=== PATIENT | female | born 1965 | race Caucasian/White ===

== ENCOUNTER 2025-04-22 14:12 | Outpatient (AMB) | payer BC, SELFPAY ==
--- OUTSIDE RECORDS SUMMARY | 2024-12-01 05:30 | XMS_ITS ---
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 Washer Engineer Helper Name Role Phone Leslie Esqueda Primary Care Provider LAYLA Brown Unavailable [phone] Encounters Encounter Location Date Provider Diagnosis [facility] [address] [place] [address] 12/01/2024 LAYLA POWELL Plan Of Treatment Next Appt Details Provider Name:LAYLA Pennington, 04/27/2025 11:00:00 AM, [address], [address], [place], [address], Progress Notes * LALAYann MEANSUzielB:1965 (59 yo F)Acc No.[id number]:12/01/2024 Patient: [place] Provider: Reed POWELL PA-C :1965 A ge:59 Y S ex:Female Date:12/01/2024 Address:[address] [place] [address] [address], [place], [place] Pcp:Leslie Esqueda * Electronic signature of KAL POWELL PA-C on 04/22/2025 at 03:25 PM EST Sign off status: Pending * Provider: Reed POWELL PA-C Date: 0 12/01/2024 Generated for Inna crystal/[place]/eTransmitting on: 1 03:25 PM EST
--- NOTE | 2025-04-22 14:15 | MHC.OFFVIS ---
Vital Signs 04/22/25 14:19 Height 5 ft 3.75 in Weight 149 lb 7.574 oz BMI 25.9 BP 122/76 Blood Pressure Location Rt brachial Position Sitting Pulse 83 Pulse Source Pulse Oximeter Pulse Oximetry (%) 98 Oxygen Delivery Method Room Air Intake Visit Reasons: New Onset Hyperparathyroid w/Hypercalcemia Intake Note: New patient externally referred by PCP for Hyperparathyroid w/ Hypercalcemia. Manager Facility Required: No Accompanied by: Sister Allergies clindamycin Adverse Reaction (Unknown, Verified 04/22/25 14:25) Swelling Medication List - Last Reviewed 04/22/25 by GEORGI Sapp butalbital-acetaminophen 50-325 mg caps PO estradiol-progesterone 0.5-100 mg 1 cap PO DAILY tirzepatide (weight loss) (Zepbound) 10 mg subcut QWEEK zolmitriptan 2.5 mg PO Q2-4H PRN HPI Comments Details: 59 YO F with PMHx [] who is seen in consultation at the request of PCP for Hypercalcemia. First noted to have high calcium this yr Not Currently using Calcium supplement just took 1 pill . Not Takes IU of Vitamin D daily. Not Currently using HCTZ. Kidney stones: No Osteoporosis: No History of [place] use: No Biotin use: on for >1 yr Family history of high calcium or kidney stones: 2 aunts have hyperparathyoidism Renal imaging: No DXA: Labs:calcium=13.1 PTH =175 PFSH Medical History (Updated 04/22/25 @ 14:48 by Daniel Koo MD) Hypercalcemia Surgical History Hx of melanoma excision Hx of cholecystectomy History of surgery Hx of eye surgery Family History Mother COPD (chronic obstructive pulmonary disease) Father Skin cancer Lung cancer Brain tumor Aneurysm Social History Alcohol intake: current Alcohol intake frequency: holidays/special occasions only Patient Tobacco Use Status: Never used Tobacco Physical Exam Vital Signs: Last Vital Signs Pulse 83 04/22/25 14:19 BP 122/76 04/22/25 14:19 Pulse Ox 98 04/22/25 14:19 Oxygen Delivery Method Room Air 04/22/25 14:19 BMI result Body Mass Index 25.9 Const Other: Thyroid gland is normal size weighs about 15 g . There are no thyroid nodules palpated Assessment & Plan Assessment & Plan (1) Hypercalcemia: Code(s): E83.52 - Hypercalcemia Category: Medical Plan: This is a 59-year-old white female found to have PTH mediated hypercalcemia most likely secondary to primary hyperparathyroidism considering family history. However, the patient is on a biotin supplement which could affect calcium and PTH measurement. The patient is asymptomatic although her calcium is moderately elevated and concerning. She is also on a G LP 1/ GIP agonist which could be causing dehydration and worsening hypercalcemia We will have patient hold a biotin supplement and recheck calcium and PTH in 5 days. If both are elevated, we will then check repeat calcium, albumin, creatinine, 24 hour urine for calcium and creatinine. I will also hold the G LP 1 for now as I am concerned about exacerbating hypercalcemia with dehydration. I did warn her that if she has any signs of confusion or abdominal pain or other symptoms of hypercalcemia to go to the emergency room immediately. Assuming results are consistent with primary hyperparathyroidism, patient would benefit from parathyroid exploration. I did take the liberty of making referral to Dr. Iverson parathyroid surgeon in anticipation that this is primary hyperparathyroidism Orders: Orders Calcium 04/27/25 E83.52 - Hypercalcemia Parathyroid Hormone Intact 04/27/25 E83.52 - Hypercalcemia Albumin Level 04/27/25 E83.52 - Hypercalcemia Referrals General Surgery Referral E83.52 - Hypercalcemia Coding Level of Care Code New Pt Level 4 (67082) Diagnoses Hypercalcemia E83.52
[2025-04-22 14:19] VITALS: BP 122/76; PULSE 83; O2SAT 98; BMI 25.9
--- OUTSIDE RECORDS SUMMARY | 2025-04-22 15:26 | XMS_ITS | Patient Health Record ---
Author Organization [facility] Address [address] [place] [address] Care Team Providers Care Environmental Conservation Officer Name Role Phone Leslie Esqueda Primary Care Provider LAYLA [facility] [phone] Allergies No Known Allergies Reason For Referral No Information Medications Medication SIG (Take, Route, Frequency, Duration) Notes Start Date End Date Status Lsoxvckpmh-SZRM-[id number] 50-325-40 MG Tablet TAKE 1 TABLET BY MOUTH EVERY 12 HOURS NEEDED FOR MIGRAINE. NOT TO EXCEED 2 TABLETS DAILY. NOT TO EXCEED 4000 MG ACETAMINOPHEN PER DAY Oral; Duration: 15 Days Active Zepbound 10 MG/0.5ML Solution Auto-injector 0.5 mL Subcutaneous once weekly; Duration: 30 days Active Estradiol 0.5 MG Tablet TAKE 1 TABLET BY MOUTH EVERY DAY Oral; Duration: 90 Days Active Progesterone 100 MG Capsule TAKE 1 CAPSULE BY MOUTH EVERY DAY AT BEDTIME Oral; Duration: 90 Days Active Social History Section Notes: Etoh: Social/infrequent Tob: Denies Drugs: denies Etoh: Social/infrequent Tob: Denies Drugs: denies Etoh: Social/infrequent Tob: Denies Drugs: denies Etoh: Social/infrequent Tob: Denies Drugs: denies Problems Problem Type SNOMED Code ICD Code Onset Dates Problem Status W/U Status Risk Notes Problem Prediabetes (979416976) Prediabetes (R73.03) Active confirmed Problem Pure hypercholesterolemia (771418689) Pure hypercholesterolemia (E78.00) Active confirmed Problem Episodic migraine (902631359377771) Episodic migraine (G43.909) Active confirmed Problem History of obesity (193356294) History of obesity (Z86.39) Active confirmed Vital Signs Heart Rate 66 /min 03/16/2025 Oximetry 99 % 03/16/2025 Blood pressure diastolic 78 mm Hg 03/16/2025 Height 63 in 03/16/2025 Blood pressure systolic 120 mm Hg 03/16/2025 Weight 154.4 lbs 03/16/2025 BMI 27.35 kg/m2 03/16/2025 Encounters Encounter Location Date Provider Diagnosis [facility] [address] 10/27/2024 LAYLA POWELL Obesity (BMI 30.0-34 .9) E66.811 ; BMI 32.0-32.9,adult Z68.32 ; Prediabetes R73.03 ; Pure hypercholesterolemia E78.00 ; Nutritional counseling Z71.3 and Blood pressure check Z01.30 [facility] [address] 12/08/2024 LAYLA POWELL BMI 30.0-30.9,adult Z68.30 ; Obesity (BMI 30.0-34.9) E66.811 ; Prediabetes R73.03 ; Pure hypercholesterolemia E78.00 ; Nutritional counseling Z71.3 and Blood pressure check Z01.30 [facility] [address] 12/31/2024 LAYLA POWELL History of obesity Z 86.39 ; BMI 29.0-29.9,adult Z68.29 ; Prediabetes R73.03 ; Pure hypercholesterolemia E78.00 ; Nutritional counseling Z71.3 and Blood pressure check Z01.30 [facility] [address] 03/16/2025 LAYLA POWELL History of obesity Z 86.39 ; BMI 27.0-27.9,adult Z68.27 ; Prediabetes R73.03 ; Pure hypercholesterolemia E78.00 ; Nutritional counseling Z71.3 and Blood pressure check Z01.30 [facility] [address] [address] 10/27/2024 LAYLA POWELL [facility] [address] [place] [address] 10/27/2024 LAYLA ANTONIOHAM [facility] [address] 10/28/2024 LAYLA POWELL Obesity (BMI 30.0-34 .9) E66.[address] [facility] [address] [place] [address] 11/27/2024 LAYLA ANTONIOHAM [facility] [address] [place] [address] [place] [phone] 01/21/2025 LAYLA ANTONIOHAM [facility] [address] [place] [address] 02/17/2025 LAYLA ANTONIOHAM [facility] [address] [place] [address] 03/23/2025 LAYLA SHERRY [facility] [address] [place] [address] 04/06/2025 LAYLA ANTONIOHAM [facility] [address] [place] [address] 04/13/2025 LAYLA ANTONIOHAM [facility] [address] [place] [address] [place] [phone] 04/17/2025 LAYLA ANTONIOHAM [facility] [address] [place] [address] [place] [phone] 04/18/2025 LAYLA ANTONIOHAM [facility] [address] [address] 04/20/2025 LAYLA ANTONIOHAM Assessments Encounter Date Diagnosis (ICD Code) Assessment Notes Treatment Notes Treatment Clinical Notes Section Notes 10/27/2024 BMI 32.0-32.9,adult (ICD-10 - Z68.32) Raven is a 59-year-old female with a PMHx of migraines, HLD, prediabetes that presents for weight management consult. Patient was reassured and welcomed to the practice. Discussed [facility] holistic and medical approach to weight loss with emphasis on lifestyle modification. Patient is educated that a healthy lifestyle aids in combating obesity as well as reducing the risk of developing obesity-related medical complications including but not limited to diabetes and cardiovascular disease. Detailed education provided about taking steps to initiate sustainable lifestyle changes including incorporating regular physical activity, making healthy diet choices, and prioritizing mental health. Information provided about literature including The Food Rules by Karson Hernandez and Eat Fat Get Lean by Dr Kenney Santos. Handouts including lifestyle checklist, protein content of food, low calorie snacks, and cholesterol information sheet provided. Diagnostic testing/ SECA scale offered. Discussed the importance of regular SECA scale measurements to ensure healthy weight loss. 10/27/2024: Weight: 183.6, BMI: 32.5. Reviewed SECA/goals for implementing sustainable lifestyle changes. Patient is encouraged to increase physical activity, goal 8-10k steps/day. Also discussed the importance of strength training with proper safety/body mechanics for maintenance of muscle mass/bone health. Patient encouraged to drink 60-80oz water/day. Reviewed nutrition, recommending food diary x 1 week to ensure adequate caloric/protein intake. Goal of 80-100g protein/day. Reviewed risks, benefits, and side effects of weight management medications including phentermine, Topamax, Contrave, metformin, and GLP-1 agonist. Patient interested in GLP-1/GIP agonist Zepbound. Denies personal/family history of medullary thyroid cancer/M EN syndrome. Rx for Zepbound 2.5 mg SC weekly sent to pharmacy. Reviewed proper use, administration, and expectations for PA process/insurance coverage. After consultation and careful review of medical history, this patient would benefit from Zepbound based off of the following criteria met: Patient is over the age of 18 with a BMI of 32.5. Additional comorbidities include prediabetes, HLD. Patient has trialed other methods of weight loss including improving diet and exercise without success. This medication is prescribed by or in consultation with a board-certified obesity and weight management physician (Dr. True Coombs or Dr. Isra Coombs). All questions answered to the patient's satisfaction. Patient demonstrates understanding of diagnosis and treatments discussed. Follow-up at next scheduled appointment, sooner should any questions/concerns arise. Case discussed with collaborating physician Fabian Coombs who has reviewed the assessment/plan. Chart, medications, labs, and vital signs reviewed. Dictation completed with the use of Glimpse voice recognition software, prone to medical misidentifications and grammatical errors. All errors are unintentional. Although the practitioner does try to identify and correct errors, some may be present. Please do not hesitate to contact the practitioner for clarification. Total time was 60 minutes spent with greater than 50% on coordination of care and patient education. 10/27/2024 Obesity (BMI 30.0-34.9) (ICD-10 - E66.811) Raven is a 59-year-old female with a PMHx of migraines, HLD, prediabetes that presents for weight management consult. Patient was reassured and welcomed to the practice. Discussed [facility] holistic and medical approach to weight loss with emphasis on lifestyle modification. Patient is educated that a healthy lifestyle aids in combating obesity as well as reducing the risk of developing obesity-related medical complications including but not limited to diabetes and cardiovascular disease. Detailed education provided about taking steps to initiate sustainable lifestyle changes including incorporating regular physical activity, making healthy diet choices, and prioritizing mental health. Information provided about literature including The Food Rules by Karson Hernandez and Eat Fat Get Lean by Dr Kenney Santos. Handouts including lifestyle checklist, protein content of food, low calorie snacks, and cholesterol information sheet provided. Diagnostic testing/ SECA scale offered. Discussed the importance of regular SECA scale measurements to ensure healthy weight loss. 10/27/2024: Weight: 183.6, BMI: 32.5. Reviewed SECA/goals for implementing sustainable lifestyle changes. Patient is encouraged to increase physical activity, goal 8-10k steps/day. Also discussed the importance of strength training with proper safety/body mechanics for maintenance of muscle mass/bone health. Patient encouraged to drink 60-80oz water/day. Reviewed nutrition, recommending food diary x 1 week to ensure adequate caloric/protein intake. Goal of 80-100g protein/day. Reviewed risks, benefits, and side effects of weight management medications including phentermine, Topamax, Contrave, metformin, and GLP-1 agonist. Patient interested in GLP-1/GIP agonist Zepbound. Denies personal/family history of medullary thyroid cancer/M EN syndrome. Rx for Zepbound 2.5 mg SC weekly sent to pharmacy. Reviewed proper use, administration, and expectations for PA process/insurance coverage. After consultation and careful review of medical history, this patient would benefit from Zepbound based off of the following criteria met: Patient is over the age of 16 with a BMI of 32.5. Additional comorbidities include prediabetes, HLD. Patient has trialed other methods of weight loss including improving diet and exercise without success. This medication is prescribed by or in consultation with a board-certified obesity and weight management physician (Dr. True Coombs or Dr. Isra Coombs). All questions answered to the patient's satisfaction. Patient demonstrates understanding of diagnosis and treatments discussed. Follow-up at next scheduled appointment, sooner should any questions/concerns arise. Case discussed with collaborating physician Fabian Coombs who has reviewed the assessment/plan. Chart, medications, labs, and vital signs reviewed. Dictation completed with the use of Glimpse voice recognition software, prone to medical misidentifications and grammatical errors. All errors are unintentional. Although the practitioner does try to identify and correct errors, some may be present. Please do not hesitate to contact the practitioner for clarification. Total time was 60 minutes spent with greater than 50% on coordination of care and patient education. 10/28/2024 Obesity (BMI 30.0-34.9) (ICD-10 - E66.811) 12/08/2024 BMI 30.0-30.9,adult (ICD-10 - Z68.30) Raven is a 59-year-old female with a PMHx of migraines, HLD, prediabetes that presents for weight management follow up. Reviewed [facility] holistic and medical approach to weight loss with emphasis on lifestyle modification 12/08/2024: Weight: 173.8, BMI: 30.6 (-10lbs) MAURICIOA reviewed, reveals 10 pounds of fat loss with mild improvement in muscle mass. Patient congratulated on progress. She is encouraged to continue making health-conscious diet choices, prioritizing protein intake, hydrating adequately, and exercising regularly. Plan to continue Zepbound 2.5 mg SC weekly and follow-up in 1 month. 10/27/2024: Weight: 183.6, BMI: 32.5. All questions answered to the patient's satisfaction. Patient demonstrates understanding of diagnosis and treatments discussed. Follow-up at next scheduled appointment, sooner should any questions/concerns arise. Case discussed with collaborating physician Fabian Coombs who has reviewed the assessment/plan. Chart, medications, labs, and vital signs reviewed. Dictation completed with the use of Glimpse voice recognition software, prone to medical misidentifications and grammatical errors. All errors are unintentional. Although the practitioner does try to identify and correct errors, some may be present. Please do not hesitate to contact the practitioner for clarification. Total time was 30 minutes spent with greater than 50% on coordination of care and patient education. 12/31/2024 BMI 29.0-29.9,adult (ICD-10 - Z68.29) Raven is a 59-year-old female with a PMHx of migraines, HLD, prediabetes that presents for weight management follow up. Reviewed [facility] holistic and medical approach to weight loss with emphasis on lifestyle modification 12/31/2024: Weight: 167, BMI: 29.5 (-6lbs) SECA reviewed, reveals 5lbs of fat loss and stable muscle mass. Patient congratulated on continued progress. She is encouraged to continue making health-conscious diet choices and prioritizing protein intake. Reviewed the importance of adequate caloric intake in setting of GLP-1 induced appetite suppression. She is encouraged to continue exercising regularly and hydrating adequately. Plan to increase dose of Zepbound to 5 mg SC weekly and follow-up in 4 to 6 weeks. 12/08/2024: Weight: 173.8, BMI: 30.6 (-10lbs) 10/27/2024: Weight: 183.6, BMI: 32.5. All questions answered to the patient's satisfaction. Patient demonstrates understanding of diagnosis and treatments discussed. Follow-up at next scheduled appointment, sooner should any questions/concerns arise. Case discussed with collaborating physician Fabian Coombs who has reviewed the assessment/plan. Chart, medications, labs, and vital signs reviewed. Dictation completed with the use of Glimpse voice recognition software, prone to medical misidentifications and grammatical errors. All errors are unintentional. Although the practitioner does try to identify and correct errors, some may be present. Please do not hesitate to contact the practitioner for clarification. Total time was 30 minutes spent with greater than 50% on coordination of care and patient education. 12/31/2024 History of obesity (ICD-10 - Z86.39) Raven is a 59-year-old female with a PMHx of migraines, HLD, prediabetes that presents for weight management follow up. Reviewed [facility] holistic and medical approach to weight loss with emphasis on lifestyle modification 12/31/2024: Weight: 167, BMI: 29.5 (-6lbs) SECA reviewed, reveals 5lbs of fat loss and stable muscle mass. Patient congratulated on continued progress. She is encouraged to continue making health-conscious diet choices and prioritizing protein intake. Reviewed the importance of adequate caloric intake in setting of GLP-1 induced appetite suppression. She is encouraged to continue exercising regularly and hydrating adequately. Plan to increase dose of Zepbound to 5 mg SC weekly and follow-up in 4 to 6 weeks. 12/08/2024: Weight: 173.8, BMI: 30.6 (-10lbs) 10/27/2024: Weight: 183.6, BMI: 32.5. All questions answered to the patient's satisfaction. Patient demonstrates understanding of diagnosis and treatments discussed. Follow-up at next scheduled appointment, sooner should any questions/concerns arise. Case discussed with collaborating physician Fabian Coombs who has reviewed the assessment/plan. Chart, medications, labs, and vital signs reviewed. Dictation completed with the use of Glimpse voice recognition software, prone to medical misidentifications and grammatical errors. All errors are unintentional. Although the practitioner does try to identify and correct errors, some may be present. Please do not hesitate to contact the practitioner for clarification. Total time was 30 minutes spent with greater than 50% on coordination of care and patient education. 03/16/2025 BMI 27.0-27.9,adult (ICD-10 - Z68.27) Raven is a 59-year-old female with a PMHx of migraines, HLD, prediabetes that presents for weight management follow up. Reviewed [facility] holistic and medical approach to weight loss with emphasis on lifestyle modification 03/12/2025: Weight: 154.4, BMI: 27.3 (-13lbs) SECA reviewed, reveals nearly 10 pounds of fat loss and 5 pounds of muscle mass loss. Patient encouraged to reestablish routine. Discussed importance of protein dense/nutrient rich foods, adequate hydration, regular physical activity. She will continue Zepbound 7.5 mg SC weekly consider increasing dose to 10 mg pending weight loss over the next 2 weeks. 12/31/2024: Weight: 167, BMI: 29.5 (-6lbs) 12/08/2024: Weight: 173.8, BMI: 30.6 (-10lbs) 10/27/2024: Weight: 183.6, BMI: 32.5. All questions answered to the patient's satisfaction. Patient demonstrates understanding of diagnosis and treatments discussed. Follow-up at next scheduled appointment, sooner should any questions/concerns arise. Case discussed with collaborating physician Fabian Coombs who has reviewed the assessment/plan. Chart, medications, labs, and vital signs reviewed. Dictation completed with the use of Glimpse voice recognition software, prone to medical misidentifications and grammatical errors. All errors are unintentional. Although the practitioner does try to identify and correct errors, some may be present. Please do not hesitate to contact the practitioner for clarification. Total time was 30 minutes spent with greater than 50% on coordination of care and patient education. 03/16/2025 History of obesity (ICD-10 - Z86.39) Raven is a 59-year-old female with a PMHx of migraines, HLD, prediabetes that presents for weight management follow up. Reviewed [facility] holistic and medical approach to weight loss with emphasis on lifestyle modification 03/12/2025: Weight: 154.4, BMI: 27.3 (-13lbs) SECA reviewed, reveals nearly 10 pounds of fat loss and 5 pounds of muscle mass loss. Patient encouraged to reestablish routine. Discussed importance of protein dense/nutrient rich foods, adequate hydration, regular physical activity. She will continue Zepbound 7.5 mg SC weekly consider increasing dose to 10 mg pending weight loss over the next 2 weeks. 12/31/2024: Weight: 167, BMI: 29.5 (-6lbs) 12/08/2024: Weight: 173.8, BMI: 30.6 (-10lbs) 10/27/2024: Weight: 183.6, BMI: 32.5. All questions answered to the patient's satisfaction. Patient demonstrates understanding of diagnosis and treatments discussed. Follow-up at next scheduled appointment, sooner should any questions/concerns arise. Case discussed with collaborating physician Fabian Coombs who has reviewed the assessment/plan. Chart, medications, labs, and vital signs reviewed. Dictation completed with the use of Glimpse voice recognition software, prone to medical misidentifications and grammatical errors. All errors are unintentional. Although the practitioner does try to identify and correct errors, some may be present. Please do not hesitate to contact the practitioner for clarification. Total time was 30 minutes spent with greater than 50% on coordination of care and patient education. 03/16/2025 Prediabetes (ICD-10 - R73.03) Raven is a 59-year-old female with a PMHx of migraines, HLD, prediabetes that presents for weight management follow up. Reviewed [facility] holistic and medical approach to weight loss with emphasis on lifestyle modification 03/12/2025: Weight: 154.4, BMI: 27.3 (-13lbs) SECA reviewed, reveals nearly 10 pounds of fat loss and 5 pounds of muscle mass loss. Patient encouraged to reestablish routine. Discussed importance of protein dense/nutrient rich foods, adequate hydration, regular physical activity. She will continue Zepbound 7.5 mg SC weekly consider increasing dose to 10 mg pending weight loss over the next 2 weeks. 12/31/2024: Weight: 167, BMI: 29.5 (-6lbs) 12/08/2024: Weight: 173.8, BMI: 30.6 (-10lbs) 10/27/2024: Weight: 183.6, BMI: 32.5. All questions answered to the patient's satisfaction. Patient demonstrates understanding of diagnosis and treatments discussed. Follow-up at next scheduled appointment, sooner should any questions/concerns arise. Case discussed with collaborating physician Fabian Coombs who has reviewed the assessment/plan. Chart, medications, labs, and vital signs reviewed. Dictation completed with the use of Glimpse voice recognition software, prone to medical misidentifications and grammatical errors. All errors are unintentional. Although the practitioner does try to identify and correct errors, some may be present. Please do not hesitate to contact the practitioner for clarification. Total time was 30 minutes spent with greater than 50% on coordination of care and patient education. 12/31/2024 Prediabetes (ICD-10 - R73.03) Raven is a 59-year-old female with a PMHx of migraines, HLD, prediabetes that presents for weight management follow up. Reviewed [facility] holistic and medical approach to weight loss with emphasis on lifestyle modification 12/31/2024: Weight: 167, BMI: 29.5 (-6lbs) SECA reviewed, reveals 5lbs of fat loss and stable muscle mass. Patient congratulated on continued progress. She is encouraged to continue making health-conscious diet choices and prioritizing protein intake. Reviewed the importance of adequate caloric intake in setting of GLP-1 induced appetite suppression. She is encouraged to continue exercising regularly and hydrating adequately. Plan to increase dose of Zepbound to 5 mg SC weekly and follow-up in 4 to 6 weeks. 12/08/2024: Weight: 173.8, BMI: 30.6 (-10lbs) 10/27/2024: Weight: 183.6, BMI: 32.5. All questions answered to the patient's satisfaction. Patient demonstrates understanding of diagnosis and treatments discussed. Follow-up at next scheduled appointment, sooner should any questions/concerns arise. Case discussed with collaborating physician Fabian Coombs who has reviewed the assessment/plan. Chart, medications, labs, and vital signs reviewed. Dictation completed with the use of Glimpse voice recognition software, prone to medical misidentifications and grammatical errors. All errors are unintentional. Although the practitioner does try to identify and correct errors, some may be present. Please do not hesitate to contact the practitioner for clarification. Total time was 30 minutes spent with greater than 50% on coordination of care and patient education. 12/08/2024 Obesity (BMI 30.0-34.9) (ICD-10 - E66.811) Raven is a 59-year-old female with a PMHx of migraines, HLD, prediabetes that presents for weight management follow up. Reviewed [facility] holistic and medical approach to weight loss with emphasis on lifestyle modification 12/08/2024: Weight: 173.8, BMI: 30.6 (-10lbs) SECA reviewed, reveals 10 pounds of fat loss with mild improvement in muscle mass. Patient congratulated on progress. She is encouraged to continue making health-conscious diet choices, prioritizing protein intake, hydrating adequately, and exercising regularly. Plan to continue Zepbound 2.5 mg SC weekly and follow-up in 1 month. 10/27/2024: Weight: 183.6, BMI: 32.5. All questions answered to the patient's satisfaction. Patient demonstrates understanding of diagnosis and treatments discussed. Follow-up at next scheduled appointment, sooner should any questions/concerns arise. Case discussed with collaborating physician Fabian Coombs who has reviewed the assessment/plan. Chart, medications, labs, and vital signs reviewed. Dictation completed with the use of Dragon voice recognition software, prone to medical misidentifications and grammatical errors. All errors are unintentional. Although the practitioner does try to identify and correct errors, some may be present. Please do not hesitate to contact the practitioner for clarification. Total time was 30 minutes spent with greater than 50% on coordination of care and patient education. 12/08/2024 Prediabetes (ICD-10 - R73.03) Raven is a 59-year-old female with a PMHx of migraines, HLD, prediabetes that presents for weight management follow up. Reviewed [facility] holistic and medical approach to weight loss with emphasis on lifestyle modification 12/08/2024: Weight: 173.8, BMI: 30.6 (-10lbs) SECA reviewed, reveals 10 pounds of fat loss with mild improvement in muscle mass. Patient congratulated on progress. She is encouraged to continue making health-conscious diet choices, prioritizing protein intake, hydrating adequately, and exercising regularly. Plan to continue Zepbound 2.5 mg SC weekly and follow-up in 1 month. 10/27/2024: Weight: 183.6, BMI: 32.5. All questions answered to the patient's satisfaction. Patient demonstrates understanding of diagnosis and treatments discussed. Follow-up at next scheduled appointment, sooner should any questions/concerns arise. Case discussed with collaborating physician Fabian Coombs who has reviewed the assessment/plan. Chart, medications, labs, and vital signs reviewed. Dictation completed with the use of Glimpse voice recognition software, prone to medical misidentifications and grammatical errors. All errors are unintentional. Although the practitioner does try to identify and correct errors, some may be present. Please do not hesitate to contact the practitioner for clarification. Total time was 30 minutes spent with greater than 50% on coordination of care and patient education. 10/27/2024 Prediabetes (ICD-10 - R73.03) Raven is a 59-year-old female with a PMHx of migraines, HLD, prediabetes that presents for weight management consult. Patient was reassured and welcomed to the practice. Discussed [facility] holistic and medical approach to weight loss with emphasis on lifestyle modification. Patient is educated that a healthy lifestyle aids in combating obesity as well as reducing the risk of developing obesity-related medical complications including but not limited to diabetes and cardiovascular disease. Detailed education provided about taking steps to initiate sustainable lifestyle changes including incorporating regular physical activity, making healthy diet choices, and prioritizing mental health. Information provided about literature including The Food Rules by Karson Hernandez and Eat Fat Get Lean by Dr Kenney Santos. Handouts including lifestyle checklist, protein content of food, low calorie snacks, and cholesterol information sheet provided. Diagnostic testing/ SECA scale offered. Discussed the importance of regular SECA scale measurements to ensure healthy weight loss. 10/27/2024: Weight: 183.6, BMI: 32.5. Reviewed SECA/goals for implementing sustainable lifestyle changes. Patient is encouraged to increase physical activity, goal 8-10k steps/day. Also discussed the importance of strength training with proper safety/body mechanics for maintenance of muscle mass/bone health. Patient encouraged to drink 60-80oz water/day. Reviewed nutrition, recommending food diary x 1 week to ensure adequate caloric/protein intake. Goal of 80-100g protein/day. Reviewed risks, benefits, and side effects of weight management medications including phentermine, Topamax, Contrave, metformin, and GLP-1 agonist. Patient interested in GLP-1/GIP agonist Zepbound. Denies personal/family history of medullary thyroid cancer/M EN syndrome. Rx for Zepbound 2.5 mg SC weekly sent to pharmacy. Reviewed proper use, administration, and expectations for PA process/insurance coverage. After consultation and careful review of medical history, this patient would benefit from Zepbound based off of the following criteria met: Patient is over the age of 16 with a BMI of 32.5. Additional comorbidities include prediabetes, HLD. Patient has trialed other methods of weight loss including improving diet and exercise without success. This medication is prescribed by or in consultation with a board-certified obesity and weight management physician (Dr. True Coombs or Dr. Isra Coombs). All questions answered to the patient's satisfaction. Patient demonstrates understanding of diagnosis and treatments discussed. Follow-up at next scheduled appointment, sooner should any questions/concerns arise. Case discussed with collaborating physician Fabian Coombs who has reviewed the assessment/plan. Chart, medications, labs, and vital signs reviewed. Dictation completed with the use of Glimpse voice recognition software, prone to medical misidentifications and grammatical errors. All errors are unintentional. Although the practitioner does try to identify and correct errors, some may be present. Please do not hesitate to contact the practitioner for clarification. Total time was 60 minutes spent with greater than 50% on coordination of care and patient education. 10/27/2024 Pure hypercholesterolemia (ICD-10 - E78.00) Raven is a 59-year-old female with a PMHx of migraines, HLD, prediabetes that presents for weight management consult. Patient was reassured and welcomed to the practice. Discussed [facility] holistic and medical approach to weight loss with emphasis on lifestyle modification. Patient is educated that a healthy lifestyle aids in combating obesity as well as reducing the risk of developing obesity-related medical complications including but not limited to diabetes and cardiovascular disease. Detailed education provided about taking steps to initiate sustainable lifestyle changes including incorporating regular physical activity, making healthy diet choices, and prioritizing mental health. Information provided about literature including The Food Rules by Karson Hernandez and Eat Fat Get Lean by Dr Kenney Santos. Handouts including lifestyle checklist, protein content of food, low calorie snacks, and cholesterol information sheet provided. Diagnostic testing/ SECA scale offered. Discussed the importance of regular SECA scale measurements to ensure healthy weight loss. 10/27/2024: Weight: 183.6, BMI: 32.5. Reviewed SECA/goals for implementing sustainable lifestyle changes. Patient is encouraged to increase physical activity, goal 8-10k steps/day. Also discussed the importance of strength training with proper safety/body mechanics for maintenance of muscle mass/bone health. Patient encouraged to drink 60-80oz water/day. Reviewed nutrition, recommending food diary x 1 week to ensure adequate caloric/protein intake. Goal of 80-100g protein/day. Reviewed risks, benefits, and side effects of weight management medications including phentermine, Topamax, Contrave, metformin, and GLP-1 agonist. Patient interested in GLP-1/GIP agonist Zepbound. Denies personal/family history of medullary thyroid cancer/M EN syndrome. Rx for Zepbound 2.5 mg SC weekly sent to pharmacy. Reviewed proper use, administration, and expectations for PA process/insurance coverage. After consultation and careful review of medical history, this patient would benefit from Zepbound based off of the following criteria met: Patient is over the age of 16 with a BMI of 32.5. Additional comorbidities include prediabetes, HLD. Patient has trialed other methods of weight loss including improving diet and exercise without success. This medication is prescribed by or in consultation with a board-certified obesity and weight management physician (Dr. True Coombs or Dr. Isra Coombs). All questions answered to the patient's satisfaction. Patient demonstrates understanding of diagnosis and treatments discussed. Follow-up at next scheduled appointment, sooner should any questions/concerns arise. Case discussed with collaborating physician Fabian Coombs who has reviewed the assessment/plan. Chart, medications, labs, and vital signs reviewed. Dictation completed with the use of Glimpse voice recognition software, prone to medical misidentifications and grammatical errors. All errors are unintentional. Although the practitioner does try to identify and correct errors, some may be present. Please do not hesitate to contact the practitioner for clarification. Total time was 60 minutes spent with greater than 50% on coordination of care and patient education. 12/08/2024 Pure hypercholesterolemia (ICD-10 - E78.00) Raven is a 59-year-old female with a PMHx of migraines, HLD, prediabetes that presents for weight management follow up. Reviewed [facility] holistic and medical approach to weight loss with emphasis on lifestyle modification 12/08/2024: Weight: 173.8, BMI: 30.6 (-10lbs) SECA reviewed, reveals 10 pounds of fat loss with mild improvement in muscle mass. Patient congratulated on progress. She is encouraged to continue making health-conscious diet choices, prioritizing protein intake, hydrating adequately, and exercising regularly. Plan to continue Zepbound 2.5 mg SC weekly and follow-up in 1 month. 10/27/2024: Weight: 183.6, BMI: 32.5. All questions answered to the patient's satisfaction. Patient demonstrates understanding of diagnosis and treatments discussed. Follow-up at next scheduled appointment, sooner should any questions/concerns arise. Case discussed with collaborating physician Fabian Coombs who has reviewed the assessment/plan. Chart, medications, labs, and vital signs reviewed. Dictation completed with the use of Glimpse voice recognition software, prone to medical misidentifications and grammatical errors. All errors are unintentional. Although the practitioner does try to identify and correct errors, some may be present. Please do not hesitate to contact the practitioner for clarification. Total time was 30 minutes spent with greater than 50% on coordination of care and patient education. 12/31/2024 Pure hypercholesterolemia (ICD-10 - E78.00) Raven is a 59-year-old female with a PMHx of migraines, HLD, prediabetes that presents for weight management follow up. Reviewed [facility] holistic and medical approach to weight loss with emphasis on lifestyle modification 12/31/2024: Weight: 167, BMI: 29.5 (-6lbs) SECA reviewed, reveals 5lbs of fat loss and stable muscle mass. Patient congratulated on continued progress. She is encouraged to continue making health-conscious diet choices and prioritizing protein intake. Reviewed the importance of adequate caloric intake in setting of GLP-1 induced appetite suppression. She is encouraged to continue exercising regularly and hydrating adequately. Plan to increase dose of Zepbound to 5 mg SC weekly and follow-up in 4 to 6 weeks. 12/08/2024: Weight: 173.8, BMI: 30.6 (-10lbs) 10/27/2024: Weight: 183.6, BMI: 32.5. All questions answered to the patient's satisfaction. Patient demonstrates understanding of diagnosis and treatments discussed. Follow-up at next scheduled appointment, sooner should any questions/concerns arise. Case discussed with collaborating physician Fabian Coombs who has reviewed the assessment/plan. Chart, medications, labs, and vital signs reviewed. Dictation completed with the use of Glimpse voice recognition software, prone to medical misidentifications and grammatical errors. All errors are unintentional. Although the practitioner does try to identify and correct errors, some may be present. Please do not hesitate to contact the practitioner for clarification. Total time was 30 minutes spent with greater than 50% on coordination of care and patient education. 03/16/2025 Pure hypercholesterolemia (ICD-10 - E78.00) Raven is a 59-year-old female with a PMHx of migraines, HLD, prediabetes that presents for weight management follow up. Reviewed [facility] holistic and medical approach to weight loss with emphasis on lifestyle modification 03/12/2025: Weight: 154.4, BMI: 27.3 (-13lbs) SECA reviewed, reveals nearly 10 pounds of fat loss and 5 pounds of muscle mass loss. Patient encouraged to reestablish routine. Discussed importance of protein dense/nutrient rich foods, adequate hydration, regular physical activity. She will continue Zepbound 7.5 mg SC weekly consider increasing dose to 10 mg pending weight loss over the next 2 weeks. 12/31/2024: Weight: 167, BMI: 29.5 (-6lbs) 12/08/2024: Weight: 173.8, BMI: 30.6 (-10lbs) 10/27/2024: Weight: 183.6, BMI: 32.5. All questions answered to the patient's satisfaction. Patient demonstrates understanding of diagnosis and treatments discussed. Follow-up at next scheduled appointment, sooner should any questions/concerns arise. Case discussed with collaborating physician Fabian Coombs who has reviewed the assessment/plan. Chart, medications, labs, and vital signs reviewed. Dictation completed with the use of Glimpse voice recognition software, prone to medical misidentifications and grammatical errors. All errors are unintentional. Although the practitioner does try to identify and correct errors, some may be present. Please do not hesitate to contact the practitioner for clarification. Total time was 30 minutes spent with greater than 50% on coordination of care and patient education. 03/16/2025 Nutritional counseli bonilla (ICD-10 - Z71.3) Raven is a 59-year-old female with a PMHx of migraines, HLD, prediabetes that presents for weight management follow up. Reviewed [facility] holistic and medical approach to weight loss with emphasis on lifestyle modification 03/12/2025: Weight: 154.4, BMI: 27.3 (-13lbs) SECA reviewed, reveals nearly 10 pounds of fat loss and 5 pounds of muscle mass loss. Patient encouraged to reestablish routine. Discussed importance of protein dense/nutrient rich foods, adequate hydration, regular physical activity. She will continue Zepbound 7.5 mg SC weekly consider increasing dose to 10 mg pending weight loss over the next 2 weeks. 12/31/2024: Weight: 167, BMI: 29.5 (-6lbs) 12/08/2024: Weight: 173.8, BMI: 30.6 (-10lbs) 10/27/2024: Weight: 183.6, BMI: 32.5. All questions answered to the patient's satisfaction. Patient demonstrates understanding of diagnosis and treatments discussed. Follow-up at next scheduled appointment, sooner should any questions/concerns arise. Case discussed with collaborating physician Fabian Coombs who has reviewed the assessment/plan. Chart, medications, labs, and vital signs reviewed. Dictation completed with the use of Glimpse voice recognition software, prone to medical misidentifications and grammatical errors. All errors are unintentional. Although the practitioner does try to identify and correct errors, some may be present. Please do not hesitate to contact the practitioner for clarification. Total time was 30 minutes spent with greater than 50% on coordination of care and patient education. 12/31/2024 Nutritional counseli bonilla (ICD-10 - Z71.3) Raven is a 59-year-old female with a PMHx of migraines, HLD, prediabetes that presents for weight management follow up. Reviewed [facility] holistic and medical approach to weight loss with emphasis on lifestyle modification 12/31/2024: Weight: 167, BMI: 29.5 (-6lbs) SECA reviewed, reveals 5lbs of fat loss and stable muscle mass. Patient congratulated on continued progress. She is encouraged to continue making health-conscious diet choices and prioritizing protein intake. Reviewed the importance of adequate caloric intake in setting of GLP-1 induced appetite suppression. She is encouraged to continue exercising regularly and hydrating adequately. Plan to increase dose of Zepbound to 5 mg SC weekly and follow-up in 4 to 6 weeks. 12/08/2024: Weight: 173.8, BMI: 30.6 (-10lbs) 10/27/2024: Weight: 183.6, BMI: 32.5. All questions answered to the patient's satisfaction. Patient demonstrates understanding of diagnosis and treatments discussed. Follow-up at next scheduled appointment, sooner should any questions/concerns arise. Case discussed with collaborating physician Fabian Coombs who has reviewed the assessment/plan. Chart, medications, labs, and vital signs reviewed. Dictation completed with the use of Glimpse voice recognition software, prone to medical misidentifications and grammatical errors. All errors are unintentional. Although the practitioner does try to identify and correct errors, some may be present. Please do not hesitate to contact the practitioner for clarification. Total time was 30 minutes spent with greater than 50% on coordination of care and patient education. 12/08/2024 Nutritional counseldick crystal (ICD-10 - Z71.3) Raven is a 59-year-old female with a PMHx of migraines, HLD, prediabetes that presents for weight management follow up. Reviewed [facility] holistic and medical approach to weight loss with emphasis on lifestyle modification 12/08/2024: Weight: 173.8, BMI: 30.6 (-10lbs) SECA reviewed, reveals 10 pounds of fat loss with mild improvement in muscle mass. Patient congratulated on progress. She is encouraged to continue making health-conscious diet choices, prioritizing protein intake, hydrating adequately, and exercising regularly. Plan to continue Zepbound 2.5 mg SC weekly and follow-up in 1 month. 10/27/2024: Weight: 183.6, BMI: 32.5. All questions answered to the patient's satisfaction. Patient demonstrates understanding of diagnosis and treatments discussed. Follow-up at next scheduled appointment, sooner should any questions/concerns arise. Case discussed with collaborating physician Fabian Coombs who has reviewed the assessment/plan. Chart, medications, labs, and vital signs reviewed. Dictation completed with the use of Glimpse voice recognition software, prone to medical misidentifications and grammatical errors. All errors are unintentional. Although the practitioner does try to identify and correct errors, some may be present. Please do not hesitate to contact the practitioner for clarification. Total time was 30 minutes spent with greater than 50% on coordination of care and patient education. 10/27/2024 Nutritional counseldick crystal (ICD-10 - Z71.3) Raven is a 59-year-old female with a PMHx of migraines, HLD, prediabetes that presents for weight management consult. Patient was reassured and welcomed to the practice. Discussed [facility] holistic and medical approach to weight loss with emphasis on lifestyle modification. Patient is educated that a healthy lifestyle aids in combating obesity as well as reducing the risk of developing obesity-related medical complications including but not limited to diabetes and cardiovascular disease. Detailed education provided about taking steps to initiate sustainable lifestyle changes including incorporating regular physical activity, making healthy diet choices, and prioritizing mental health. Information provided about literature including The Food Rules by Karson Hernandez and Eat Fat Get Lean by Dr Kenney Santos. Handouts including lifestyle checklist, protein content of food, low calorie snacks, and cholesterol information sheet provided. Diagnostic testing/ SECA scale offered. Discussed the importance of regular SECA scale measurements to ensure healthy weight loss. 10/27/2024: Weight: 183.6, BMI: 32.5. Reviewed SECA/goals for implementing sustainable lifestyle changes. Patient is encouraged to increase physical activity, goal 8-10k steps/day. Also discussed the importance of strength training with proper safety/body mechanics for maintenance of muscle mass/bone health. Patient encouraged to drink 60-80oz water/day. Reviewed nutrition, recommending food diary x 1 week to ensure adequate caloric/protein intake. Goal of 80-100g protein/day. Reviewed risks, benefits, and side effects of weight management medications including phentermine, Topamax, Contrave, metformin, and GLP-1 agonist. Patient interested in GLP-1/GIP agonist Zepbound. Denies personal/family history of medullary thyroid cancer/M EN syndrome. Rx for Zepbound 2.5 mg SC weekly sent to pharmacy. Reviewed proper use, administration, and expectations for PA process/insurance coverage. After consultation and careful review of medical history, this patient would benefit from Zepbound based off of the following criteria met: Patient is over the age of 16 with a BMI of 32.5. Additional comorbidities include prediabetes, HLD. Patient has trialed other methods of weight loss including improving diet and exercise without success. This medication is prescribed by or in consultation with a board-certified obesity and weight management physician (Dr. True Coombs or Dr. Isra Coombs). All questions answered to the patient's satisfaction. Patient demonstrates understanding of diagnosis and treatments discussed. Follow-up at next scheduled appointment, sooner should any questions/concerns arise. Case discussed with collaborating physician Fabian Coombs who has reviewed the assessment/plan. Chart, medications, labs, and vital signs reviewed. Dictation completed with the use of Glimpse voice recognition software, prone to medical misidentifications and grammatical errors. All errors are unintentional. Although the practitioner does try to identify and correct errors, some may be present. Please do not hesitate to contact the practitioner for clarification. Total time was 60 minutes spent with greater than 50% on coordination of care and patient education. 10/27/2024 Blood pressure check (ICD-10 - Z01.30) Raven is a 59-year-old female with a PMHx of migraines, HLD, prediabetes that presents for weight management consult. Patient was reassured and welcomed to the practice. Discussed [facility] holistic and medical approach to weight loss with emphasis on lifestyle modification. Patient is educated that a healthy lifestyle aids in combating obesity as well as reducing the risk of developing obesity-related medical complications including but not limited to diabetes and cardiovascular disease. Detailed education provided about taking steps to initiate sustainable lifestyle changes including incorporating regular physical activity, making healthy diet choices, and prioritizing mental health. Information provided about literature including The Food Rules by Karson Hernandez and Eat Fat Get Lean by Dr Kenney Santos. Handouts including lifestyle checklist, protein content of food, low calorie snacks, and cholesterol information sheet provided. Diagnostic testing/ SECA scale offered. Discussed the importance of regular SECA scale measurements to ensure healthy weight loss. 10/27/2024: Weight: 183.6, BMI: 32.5. Reviewed SECA/goals for implementing sustainable lifestyle changes. Patient is encouraged to increase physical activity, goal 8-10k steps/day. Also discussed the importance of strength training with proper safety/body mechanics for maintenance of muscle mass/bone health. Patient encouraged to drink 60-80oz water/day. Reviewed nutrition, recommending food diary x 1 week to ensure adequate caloric/protein intake. Goal of 80-100g protein/day. Reviewed risks, benefits, and side effects of weight management medications including phentermine, Topamax, Contrave, metformin, and GLP-1 agonist. Patient interested in GLP-1/GIP agonist Zepbound. Denies personal/family history of medullary thyroid cancer/M EN syndrome. Rx for Zepbound 2.5 mg SC weekly sent to pharmacy. Reviewed proper use, administration, and expectations for PA process/insurance coverage. After consultation and careful review of medical history, this patient would benefit from Zepbound based off of the following criteria met: Patient is over the age of 16 with a BMI of 32.5. Additional comorbidities include prediabetes, HLD. Patient has trialed other methods of weight loss including improving diet and exercise without success. This medication is prescribed by or in consultation with a board-certified obesity and weight management physician (Dr. True Coombs or Dr. Isra Coombs). All questions answered to the patient's satisfaction. Patient demonstrates understanding of diagnosis and treatments discussed. Follow-up at next scheduled appointment, sooner should any questions/concerns arise. Case discussed with collaborating physician Fabian Coombs who has reviewed the assessment/plan. Chart, medications, labs, and vital signs reviewed. Dictation completed with the use of Dragon voice recognition software, prone to medical misidentifications and grammatical errors. All errors are unintentional. Although the practitioner does try to identify and correct errors, some may be present. Please do not hesitate to contact the practitioner for clarification. Total time was 60 minutes spent with greater than 50% on coordination of care and patient education. 12/08/2024 Blood pressure check (ICD-10 - Z01.30) Raven is a 59-year-old female with a PMHx of migraines, HLD, prediabetes that presents for weight management follow up. Reviewed [facility] holistic and medical approach to weight loss with emphasis on lifestyle modification 12/08/2024: Weight: 173.8, BMI: 30.6 (-10lbs) SECA reviewed, reveals 10 pounds of fat loss with mild improvement in muscle mass. Patient congratulated on progress. She is encouraged to continue making health-conscious diet choices, prioritizing protein intake, hydrating adequately, and exercising regularly. Plan to continue Zepbound 2.5 mg SC weekly and follow-up in 1 month. 10/27/2024: Weight: 183.6, BMI: 32.5. All questions answered to the patient's satisfaction. Patient demonstrates understanding of diagnosis and treatments discussed. Follow-up at next scheduled appointment, sooner should any questions/concerns arise. Case discussed with collaborating physician Fabian Coombs who has reviewed the assessment/plan. Chart, medications, labs, and vital signs reviewed. Dictation completed with the use of [employer] voice recognition software, prone to medical misidentifications and grammatical errors. All errors are unintentional. Although the practitioner does try to identify and correct errors, some may be present. Please do not hesitate to contact the practitioner for clarification. Total time was 30 minutes spent with greater than 50% on coordination of care and patient education. 03/16/2025 Blood pressure check (ICD-10 - Z01.30) Raven is a 59-year-old female with a PMHx of migraines, HLD, prediabetes that presents for weight management follow up. Reviewed [facility] holistic and medical approach to weight loss with emphasis on lifestyle modification 03/12/2025: Weight: 154.4, BMI: 27.3 (-13lbs) SECA reviewed, reveals nearly 10 pounds of fat loss and 5 pounds of muscle mass loss. Patient encouraged to reestablish routine. Discussed importance of protein dense/nutrient rich foods, adequate hydration, regular physical activity. She will continue Zepbound 7.5 mg SC weekly consider increasing dose to 10 mg pending weight loss over the next 2 weeks. 12/31/2024: Weight: 167, BMI: 29.5 (-6lbs) 12/08/2024: Weight: 173.8, BMI: 30.6 (-10lbs) 10/27/2024: Weight: 183.6, BMI: 32.5. All questions answered to the patient's satisfaction. Patient demonstrates understanding of diagnosis and treatments discussed. Follow-up at next scheduled appointment, sooner should any questions/concerns arise. Case discussed with collaborating physician Fabian Coombs who has reviewed the assessment/plan. Chart, medications, labs, and vital signs reviewed. Dictation completed with the use of [employer] voice recognition software, prone to medical misidentifications and grammatical errors. All errors are unintentional. Although the practitioner does try to identify and correct errors, some may be present. Please do not hesitate to contact the practitioner for clarification. Total time was 30 minutes spent with greater than 50% on coordination of care and patient education. 12/31/2024 Blood pressure check (ICD-10 - Z01.30) Raven is a 59-year-old female with a PMHx of migraines, HLD, prediabetes that presents for weight management follow up. Reviewed [facility] holistic and medical approach to weight loss with emphasis on lifestyle modification 12/31/2024: Weight: 167, BMI: 29.5 (-6lbs) SECA reviewed, reveals 5lbs of fat loss and stable muscle mass. Patient congratulated on continued progress. She is encouraged to continue making health-conscious diet choices and prioritizing protein intake. Reviewed the importance of adequate caloric intake in setting of GLP-1 induced appetite suppression. She is encouraged to continue exercising regularly and hydrating adequately. Plan to increase dose of Zepbound to 5 mg SC weekly and follow-up in 4 to 6 weeks. 12/08/2024: Weight: 173.8, BMI: 30.6 (-10lbs) 10/27/2024: Weight: 183.6, BMI: 32.5. All questions answered to the patient's satisfaction. Patient demonstrates understanding of diagnosis and treatments discussed. Follow-up at next scheduled appointment, sooner should any questions/concerns arise. Case discussed with collaborating physician Fabian Coombs who has reviewed the assessment/plan. Chart, medications, labs, and vital signs reviewed. Dictation completed with the use of [employer] voice recognition software, prone to medical misidentifications and grammatical errors. All errors are unintentional. Although the practitioner does try to identify and correct errors, some may be present. Please do not hesitate to contact the practitioner for clarification. Total time was 30 minutes spent with greater than 50% on coordination of care and patient education. Plan Of Treatment Next Appt Details Provider Name:LAYLA MARCOS [place], 04/27/2025 11:00:00 AM, [address] [facility], [facility] [address], [place], [address], Insurance Providers Payer Name Payer Address Payer Phone Subscriber Number Group Number Insured Name Patient Relationship to Insured Coverage Start Date Coverage End Date [facility] and [facility] [address] [place] [address] [id number] Raven Reeves Self - patient is the insured Medical (General) History Surgical History Surgery Date(Month/Year) cholecystectomy 12/2023 tank young liposuction
--- OUTSIDE RECORDS SUMMARY | 2025-04-22 15:26 | XMS_ITS | Clinical Summary ---
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 Role Phone Leslie Esqueda NP Primary Care Provider [phone] Social History Tobacco Use Types Packs/Day Years Used Date Smoking Tobacco: Never Assessed Comments Unknown Sex and Gender Information Value Date Recorded Sex Assigned at Female 04/21/2024 3:50 PM EST Legal Sex Female 3:42 PM EDT Gender Identity Female 04/21/2024 3:50 PM EST Sexual Orientation Straight 04/21/2024 3: 50 PM EST Plan of Treatment Health Maintenance Due Date Last Done Comments Breast Cancer Screening 1965 DTaP,Tdap,and Td Vaccines (1 - Tdap) 09/17/1982 Cervical Cancer Screening: P ap Smear 09/17/1984 Pneumococcal Vaccine: 50+ Ye ars (1 of 1 - PCV) 09/17/2013 Zoster Vaccines (1 of 2) 09/17/2013 HIV Screening 02/06/2024 Hepatitis C Screening 02/06/2024 Social Influencers of Health Screening 02/06/2024 Depression Screening 04/23/2024 COVID-19 Vaccine (1 - 2024-2 6 season) 2024 Influenza Vaccine (#1) 2024 Colorectal Cancer Screening: Colonoscopy 04/06/2027 04/06/2017 RSV Immunization Adult Patie nts (1 - 1-dose 75+ series) 09/17/2038 HIB Vaccines Aged Out No longer eligi ble based on patient's age to complete this topic HPV Vaccines Aged Out No longer eligi ble based on patient's age to complete this topic Hepatitis A Vaccines Aged Out No long er eligible based on patient's age to complete this topic Hepatitis B Vaccines Aged Out No long er eligible based on patient's age to complete this topic IPV Vaccines Aged Out No longer eligi ble based on patient's age to complete this topic MMR Vaccines Aged Out No longer eligi ble based on patient's age to complete this topic Meningococcal ACWY Vaccine Aged Out N o longer eligible based on patient's age to complete this topic Meningococcal B Vaccine Aged Out No l onger eligible based on patient's age to complete this topic RSV Immunization Patients Un mike 20 months Aged Out No longer eligible b ased on patient's age to complete this topic Varicella Vaccines Aged Out No longer eligible based on patient's age to complete this topic Procedures Procedure Name Priority Date/Time Associated Diagnosis Comments COLONOSCOPY Routine 04/06/2017 11:26 AM EST from Last 3 Months or Most Recently Relevant to Health Maintenance Results * COLONOSCOPY (04/06/2017 11:26 AM EST) Anatomical Region Laterality Modality Endoscopy us Historical Provider GI~PROCEDURE ORDERABLES F inal Result from Last 3 Months or Most Recently Relevant to Health Maintenance Insurance * Guarantor: Raven Reeves Account Type Relation to Patient Date of Phone Billing Address Personal/Family Self [address] [place] [address] [facility] Care Teams Woodworking 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
--- OUTSIDE RECORDS SUMMARY | 2025-04-22 15:26 | XMS_ITS | Data Portability ---
Author Organization [place] - [facility],, MARCIA PATTERSON MD Address [address] [facility] [address] [place] [address] Care Team Providers Care Peritoneal Dialysis Registered Nurse Name Role Phone MIKE BARCENAS Primary Care Provider [phone] Assessment No assessment recorded. Plan of Treatment Reminders Order Date Submit Date Provider Last Modified By Organization Details Last Modified Time Details Appointments None recorded. Lab cytology report, thin prep, smear or scraping, cervical or vaginal 2024 025 TORRES [facility] (Centralized Electronic Ordering - All Locations), Patient Can Go To The Location Of Their Choice, [id number] 5 16:18:28 hemoglobi n, gastroint estinal, stool 2024 025 [email or web address] 1 In-Office Order, Internal Use Only DO Not Attach Compendium DO Not Attach Compendium, Do Not Delete/merge, [id number] 08:38:24 pap test, thinprep, cervical 2022 023 [email or web address] [facility] (Centralized Electronic Ordering - All Locations), Patient Can Go To The Location Of Their Choice, [id number] 11:09:46 fecal occult blood, stool 2022 023 [email or web address] 1 In-Office Order, Internal Use Only DO Not Attach Compendium DO Not Attach Compendium, Do Not Delete/merge, [id number] 10:57:12 pap test, thinprep, cervical 2021 022 [email or web address] [facility] (Centralized Electronic Ordering - All Locations), Patient Can Go To The Location Of Their Choice, [id number] 2 07:42:52 fecal occult blood, stool 2021 022 [email or web address] 1 In-Office Order, Internal Use Only DO Not Attach Compendium DO Not Attach Compendium, Do Not Delete/merge, [id number] 10:25:27 pap test, thinprep, cervical 2020 021 [email or web address] [facility], Cytopathology Service, [address] [place] [address], [address], 1 07:53:32 fecal occult blood, stool 2020 021 [email or web address] 1 In-Office Order, Internal Use Only DO Not Attach Compendium DO Not Attach Compendium, Do Not Delete/merge, [id number] 1 13:52:53 pap test, thinprep, cervical 2019 020 [email or web address] [facility], Cytopathology Service, [address] [place] [address], [address], 0 07:26:04 fecal occult blood, stool 2019 020 [email or web address] In-Office Order, Internal Use Only DO Not Attach Compendium DO Not Attach Compendium, Do Not Delete/merge, [id number] 0 07:26:04 Referral None recorded. Procedures None recorded. Surgeries None recorded. Imaging MAMMO, screening , digital, bilateral - Breast Aspiratio n and/or Biopsy if needed 2024 025 [email or web address] [facility] Orders, [address], [place], [address], 5 14:56:06 MAMMO, screening , digital, bilateral - Breast Aspiratio n and/or Biopsy if needed 2022 023 TORRES [facility] Orders, [address], [place], [address], 4 15:18:36 MAMMO, screening , digital, bilateral 2021 022 [email or web address] [facility] Orders, [address], [place], [address], 4 07:30:09 MAMMO, screening , digital, bilateral 2020 021 [facility] Imaging Orders, [address], [place], [address], 2 11:55:00 MAMMO, screening , digital, bilateral 2019 020 [facility] Orders, [address], [place], [address], 1 13:04:40 Medication Orders estradiol 0.5 mg tablet 2024 025 TORRES Not available 5 08:38:29 progester one micronize d 100 mg capsule 2024 025 TORRES Not available 5 08:38:30 estradiol 0.5 mg tablet 2022 023 TORRES Not available 3 10:57:39 progester one micronize d 100 mg capsule 2022 023 TORRES Not available 3 10:57:38 progester one micronize d 100 mg capsule 2021 022 TORRES Not available 2 10:25:34 estradiol 0.5 mg tablet 2021 022 TORRES Not available 2 10:25:36 progester one micronize d 100 mg capsule 2020 021 TORRES Not available 1 13:52:55 estradiol 0.5 mg tablet 2020 021 TORRES Not available 1 13:52:55 estradiol 1 mg tablet 2019 020 [email or web address] [id number], [address] [place], [place], [id number], 2 09:50:46 progester one micronize d 200 mg capsule 2019 020 [email or web address] [facility] #[id number], [address] [place] [address], [place], [id number], 09:51:00 Patient TargetsNo targets recorded. Patient Instructions Encounter Date Encounter Id Patient Instructions Last Modified By Organization Details Last Modified Time 11/24/2019 [id number] She is here for annual exam, doing well on HRT and elects to continue. ____ Note from 2019: She is here for annual exam, is doing well. She is not using the wild yam cream anymore, is taking HRT and doing well on that and elects to continue. She appears to be doing well. She is advised to get 1500 mg of calcium daily into her diet and supplements combined. We discussed the benefits of adequate vitamin D supplementation to at least 400 units daily, daily aerobic exercise of 30 minutes, and stress reduction. Monthly self breast exam was taught, and stressed, and is advised to call if she discovers any new mass in the breast. Seat belt use for herself and passengers advised. The significant health benefits of becoming and remaining fit, with an optimal BMI, were discussed. We discussed the potential reduction in chronic discomfort, the diminished risks of hypertension, diabetes, and heart disease with the proper weight management, and improved mobility as she ages. Strategies to reach and maintain her target weight were discussed in detail. We discussed the avoidance of empty calories, the benefit of increasing her protein intake in the morning and diminishing her carbohydrate intake in the evening. A formalized dietary program was discussed, such as Weight Watchers. We discussed the use of the BMI calculator in following her progress. We discussed having her continue to take hormone replacement therapy. We discussed the need to take a progestin if a uterus is present, and the rationale behind that. We discussed the stated risks of one in 10,000 of development of a blood clot/DVT/PE that could be life threatening. We discussed the Women's Health Initiative study and the findings. We discused the PEPPI study as well. She is aware that there are conflicting reports in the medical literature concerning the risks and benefits of HRT. We disussed that women are advised by ACOG to take HRT in the lowest dose necessary, and for the shortest time necessary, to control their symptoms. After a long discussion of the potential risks and benefits of HRT she elects to continue HRT. All questions were answered. Rx for HRT is called in to the pharmacy. Call if any vaginal bleeding occurs upon initiation of HRT, or at any time postmenopausally. Not available 11/24/2019 10:48:38 03/22/2021 [id number] learning about healthy weight Not available 03/22/2021 13:52:47 She is here for annual exam, is doing well on HRT but would like to try going down to half dose to see if she needs the full dose. She started in 02/2018. Dropped down to 0.5 mg estradiol and 100 mg progesterone, call if symptoms recur. We discussed having her continue to take hormone replacement therapy. We discussed the need to take a progestin if a uterus is present, and the rationale behind that. We discussed the stated risks of one in 10,000 of development of a blood clot/DVT/PE that could be life threatening. We discussed the Women's Health Initiative study and the findings. We discused the PEPPI study as well. She is aware that there are conflicting reports in the medical literature concerning the risks and benefits of HRT. We disussed that women are advised by ACOG to take HRT in the lowest dose necessary, and for the shortest time necessary, to control their symptoms. After a long discussion of the potential risks and benefits of HRT she elects to continue HRT. All questions were answered. Rx for HRT is called in to the pharmacy. Call if any vaginal bleeding occurs upon initiation of HRT, or at any time postmenopausally. Not available 03/22/2021 13:53:47 03/27/2022 [id number] influenza (flu) vaccine: care instructions Not available 03/27/2022 10:25:27 learning about healthy weight Not available 03/27/2022 10:25:27 She is here for annual exam, is doing well on half dose HRT, elects to continue. Also she requests a flu shot today. note from 2020: She is here for annual exam, is doing well on HRT but would like to try going down to half dose to see if she needs the full dose. She started in 02/2018. Dropped down to 0.5 mg estradiol and 100 mg progesterone, call if symptoms recur. Flu shot given. We discussed having her continue to take hormone replacement therapy. We discussed the need to take a progestin if a uterus is present, and the rationale behind that. We discussed the stated risks of one in 10,000 of development of a blood clot/DVT/PE that could be life threatening. We discussed the Women's Health Initiative study and the findings. We discused the PEPPI study as well. She is aware that there are conflicting reports in the medical literature concerning the risks and benefits of HRT. We disussed that women are advised by ACOG to take HRT in the lowest dose necessary, and for the shortest time necessary, to control their symptoms. After a long discussion of the potential risks and benefits of HRT she elects to continue HRT. All questions were answered. Rx for HRT is called in to the pharmacy. Call if any vaginal bleeding occurs upon initiation of HRT, or at any time postmenopausally. tamia Not available 03/27/2022 10:26:06 04/06/2023 [id number] learning about healthy weight tamia Not available 04/06/2023 10:57:12 She is here for annual, doing well. She tried to wean down off the half dose HRT but had profound vasomotor symptoms and restarted. She had her gallbladder out over Labor Day, I had an attack. note from 2021: She is here for annual exam, is doing well on half dose HRT, elects to continue. Also she requests a flu shot today. ___ We discussed having her continue to take hormone replacement therapy. We discussed the need to take a progestin if a uterus is present, and the rationale behind that. We discussed the stated risks of one in 10,000 of development of a blood clot/DVT/PE that could be life threatening. We discussed the Women's Health Initiative study and the findings. We discused the PEPPI study as well. She is aware that there are conflicting reports in the medical literature concerning the risks and benefits of HRT. We disussed that women are advised by ACOG to take HRT in the lowest dose necessary, and for the shortest time necessary, to control their symptoms. After a long discussion of the potential risks and benefits of HRT she elects to continue HRT. All questions were answered. Rx for HRT is called in to the pharmacy. Call if any vaginal bleeding occurs upon initiation of HRT, or at any time postmenopausally. Not available 04/06/2023 10:57:05 05/13/2024 [id number] [email or web address] Not available 05/13/2024 08:38:24 She is here for annual, doing well on her half dose HRT, elects to continue. Note from 2022: She is here for annual, doing well. She tried to wean down off the half dose HRT but had profound vasomotor symptoms and restarted. She had her gallbladder out over Labor Day, I had an attack. She appears to be doing well. . We discussed having her continue to take hormone replacement therapy. We discussed the need to take a progestin if a uterus is present, and the rationale behind that. We discussed the stated risks of one in 10,000 of development of a blood clot/DVT/PE that could be life threatening. We discussed the Women's Health Initiative study and the findings. We discused the PEPPI study as well. She is aware that there are conflicting reports in the medical literature concerning the risks and benefits of HRT. We disussed that women are advised by ACOG to take HRT in the lowest dose necessary, and for the shortest time necessary, to control their symptoms. After a long discussion of the potential risks and benefits of HRT she elects to continue HRT. All questions were answered. Rx for HRT is called in to the pharmacy. Call if any vaginal bleeding occurs upon initiation of HRT, or at any time postmenopausally. Not available 05/13/2024 08:39:06 Reason for Referral None Reported. Results Created Date Observation Date Name Description Value Unit Range Abnormal Flag Note LastModifiedBy Organization Detail LastModifiedTime 11/24/19 20 11/24/2019 pap, LB [id number] ThinP rep Pap, Image d: NEGAT NISHI FOR SQUAM OUS INTRA EPITH ELIAL LESIO N AND MALIG YSABEL . Sarah da is prese nt. Harjinder del castillo , [place]( CP) (Case elect veronica willard paz d 11 26 2019) ADEQU ACY: Satis facto ry Endoc ervic al/tr ansfo rmati on zone compo nent absen t. SOURC E: ThinP rep Pap, Cervi arleen, Image d CLINI ARLEEN INFOR MATIO N: LPS 9 neg, z12.4 , z01.4 19 Not Available [facility], Cytopathology Service [address] [place], [address], 11/27/2019 07:41:03 11/24/19 20 11/24/2019 fecal occul t blood , stool Occult Blood negati ve Not Available In-Office Order Internal Use Only DO Not Attach Compendium DO Not Attach Compendium, Do Not Delete/merge, [id number] 11/24/2019 10:48:16 03/22/20 21 03/22/2021 PAP1C ASE [id number] ThinP rep Pap, Image d: NEGAT NISHI FOR SQUAM OUS INTRA EPITH ELIAL LESIO N AND MALIG YSABEL . Note: The Pap test is a scree laurie test with an inher ent false negat nishi rate. Autom ated presc reeni ng of all liqui d based speci mens is perfo rmed by the ThinP rep Imagi ng Syste m kevin s [facility] jono santacruz , [place]( CP) (Case elect veronica willard paz d 04 04 2021) ADEQU ACY: Satis facto ry Endoc ervic al/tr ansfo rmati on zone compo nent absen t. SOURC E: ThinP rep Pap HPV IF Ascus : Refle x 16 and 18, Cervi arleen, Image d CLINI ARLEEN INFOR MATXOCHITL N: HPV If Diagn osis of ASCUS . Z12.4 Not Available [facility], Cytopathology Service [address] [place], [address], 04/04/2021 11:21:04 03/22/20 21 03/22/2021 fecal occul t blood , stool Occult Blood negati ve Not Available In-Office Order Internal Use Only DO Not Attach Compendium DO Not Attach Compendium, Do Not Delete/merge, [id number] 03/22/2021 13:25:12 03/27/20 22 03/27/[address] [facility] CYTOL OGY results Patie nt Name: VANCE OLVERA nt : 1965 (Age: 56) Lab Acces pete #: [id number] Colle ction Date: 2021 Acces pete Date: 2021 Sign Out Date: 2021 Tissu e Sourc e: 1: THINP REP REAL ESTATE BROKER PAP TEST, CERVI ARLEEN: Final Diagn osis: NEGAT NISHI FOR INTRA EPITH ELIAL LESIO N OR MALJEANNETTE GRADY . Satis facto ry for evalu ation . Endoc ervic al/tr ansfo rmati on zone ABSEN T. Clini arleen Histo ry: Date of Last Menst rual Perio d: not avail able Menst rual Histo ry: Post- menop ausal Contr acept nishi Histo ry: not avail able Ancil enrrique Testi ng: HPV (ASCU S) Case image d by the ThinP rep Imagi ng Syste m with micah kong or renée Hernandes rmed at [facility] ate Refer ence Labor atory depar tment of Cytol ogy, [address] [place] Clini arleen Histo ry (othe r): Z01.4 19, LPS 03/22 negat nishi, routi ne scree n Phone #: [phone], On-Ca ll Patho logis t: [id number] Not Available [facility] (Centralized Electronic Ordering - All Locations) Patient Can Go To The Location Of Their Choice, [id number] 03/30/2022 11:37:40 03/27/2003/27/2022 fecal occul t blood , stool Occult Blood negati ve Not Available In-Office Order Internal Use Only DO Not Attach Compendium DO Not Attach Compendium, Do Not Delete/merge, [id number] 03/27/2022 09:49:11 04/06/2004/06/[address] [facility] CYTOL OGY results Angeline nt Name: VANCE OLVERA : 1965 (Age: 57) Lab Acces pete #: [id number] Colle ction Date: 04/06 Acces pete Date: 04/07 Sign Out Date: 04/12 Tissu e Sourc e: 1: THINP REP REAL ESTATE BROKER PAP TEST, CERVI ARLEEN: Final Diagn osis: NEGAT NISHI FOR INTRA EPITH ELIAL LESIO N OR MALIG YSABEL . Satis facto ry for evalu ation . Endoc ervic al/tr ansfo rmati on zone ABSEN T. Clini arleen Histo ry: Date of Last Menst rual Perio d: not avail able Menst rual Histo ry: Post- menop ausal Contr acept nishi Histo ry: not avail able Ancil enrrique Testi ng: HPV (ASCU S) Case image d by the ThinP rep Imagi ng Syste m with micah brooks rescr carine kong or renée hudson. Perfo rmed at [facility] ate Refer ence Labor atory depar tment of Cytol ogy, [address] [place] Clini arleen Histo ry (othe r): z01.4 19, lps neg Phone #: [phone], On-Ca ll Patho logis t: [id number] Not Available [facility] (Centralized Electronic Ordering - All Locations) Patient Can Go To The Location Of Their Choice, [id number] 04/12/2023 16:11:26 04/06/20 23 04/06/2023 fecal occul t blood , stool Occult Blood negati ve Not Available In-Office Order Internal Use Only DO Not Attach Compendium DO Not Attach Compendium, Do Not Delete/merge, [id number] 04/06/2023 10:35:41 05/13/19 25 05/16/2024 IGP, RFX APTIM A HPV ASCU diagnosis: Abdoulaye wagoner NEGAT NISHI FOR INTRA EPITH ELIAL TIP N OR STANLEY GRADY . Not Available [facility] ([facility]) [address] [place], [address], 05/16/2024 16:18:28 05/13/19 25 05/16/2024 IGP, RFX APTIM A HPV ASCU specimen adequacy: Abdoulaye wagoner Satis facto ry for evalu ation . Endoc ervic al and/o r squam ous metap lasti c cells (endo cervi arleen compo nent) are prese nt. Not Available [facility] ([facility]) [address] [place], [address], 05/16/2024 16:18:28 05/13/19 25 05/16/2024 IGP, RFX APTIM A HPV ASCU clinician provided ICD10: Abdoulaye wagoner Z01.4 19 Not Available [facility] ([facility]) [address] [place], [address], 05/16/2024 16:18:28 05/13/19 25 05/16/2024 IGP, RFX APTIM A HPV ASCU performed by: Abdoulaye walton, Cytociaran wagoner (ASCP ) Not Available [facility] ([facility]) [address] [place], [address], 05/16/2024 16:18:28 05/13/19 25 05/16/2024 IGP, RFX APTIM A HPV ASCU . . Not Available [facility] ([facility]) [address] [place], [address], 05/16/2024 16:18:28 05/13/19 25 05/16/2024 IGP, RFX APTIM A HPV ASCU note: Commen t The Pap smear is a scree laurie test desig [place] to aid in the detec tion of marva ligna nt and malig nant condi tions of the uteri ne cervi x. It is not a diagn ostic proce dure and shoul d not be used as the sole means of detec ting cervi arleen cance r. Both false -posi tive and false -nega tive repor ts do occur . Not Available [facility] ([facility]) [address] [facility], [place], [address], 05/16/2024 16:18:28 05/13/19 25 05/16/2024 IGP, RFX APTIM A HPV ASCU test methodology: Commen t This liqui d based ThinP rep(R ) pap test was scree [place]iposa with the use of an image guide d systliset m. Not Available [facility] ([facility]) [address] [facility], [place], [address], 05/16/2024 16:18:28 05/13/19 25 05/16/2024 IGP, RFX APTIM A HPV ASCU . Commen t The HPV DNA refle x crite lyudmila were not met with this speci men resul t there fore, no HPV testi ng was perfo rmed. Not Available [facility] ([facility]) [address] [facility], [place], [address], 05/16/2024 16:18:28 05/13/19 25 05/13/2024 hemog lobin , gastr ointe kylah l, stool Occult Blood negati ve Not Available In-Office Order Internal Use Only DO Not Attach Compendium DO Not Attach Compendium, Do Not Delete/merge, [id number] 05/13/2024 08:22:54 06/19/19 21 06/19/2020 MAMMO , scree laurie, digit al, bilat eral No observ ation record ed. [facility] Orders [address], [place], [address], 06/19/2020 13:38:57 08/27/19 22 08/26/2021 MAMMO , scree laurie, digit al, bilat eral No observ ation record ed. [facility] [place] [address] [place], [address], 08/26/2021 12:07:24 01/09/20 24 01/09/2024 MAMMO , scree laurie, digit al, bilat eral No observ ation record ed. [facility] [place] [address] [place], [address], 01/10/2024 08:10:57 Result Notes None recorded. Problems Name Problem SNOMED Code Status Onset Date Resolution Date Notes Provider Name and Address Organization Details Recorded Time Menopause Active 018 SAMARIA Cabrera in [facility], 8 11:18:09 Migraine 79186503 Active 018 SAMARIA Cabrera in [facility], 8 11:18:36 Menopausal syndrome 125908330 Active 018 Marcia Patterson MD [address] [facility] [address], [place], [address] [facility] [place] [facility], 8 11:33:29 Problem Notes None recorded. Procedures Surgical History Date Name Laterality Status Provider Name and Address Organization Details Recorded Time 03/26/20 24 Most Recent Mammogram completed Lexus Varela in [facility], 05/13/2024 08:22:31 01/11/20 23 Cholecystectomy completed Nydia Varela in [facility], 04/06/2023 10:41:54 10/25/18 99 Other completed Lexus Varela in [facility], 11/19/2017 14:15:08 05/30/18 95 Other completed Lexus Varela in [facility], 11/19/2017 14:13:43 12/07/18 87 Other completed Lexus Varela in [facility], 11/19/2017 14:14:13 10/21/18 68 Other completed Lexus Varela in [facility], 11/19/2017 14:13:06 Imaging Results None recorded. Procedure Notes None recorded. Medical Equipment None Reported. Allergies Allergen ID Allergen Name Allergen Category Reaction Reaction Severity Criticality Documentation Date Start Date Code Code System Note Provider Name and Address Organization Details Recorded Time clindamyc in Not available facial swelling Not available Not available 11/19/2017 2582 RxNorm SAMARIA Cabrera in [facility], 8 14:02:08 Medications Name Sig Start Date Stop Date Status Note LastModified by Organization Details LastModified Time clonidine HCl 0.1 mg tablet PLEASE SEE ATTACHED FOR DETAILED DIRECTION S active Not Available Not Available No t Available alprazolam 1 mg tablet PLEASE SEE ATTACHED FOR DETAILED DIRECTION S 05/13 completed Not Available Not Available Not Available zolmitripta n 5 mg tablet TAKE 1 TABLET BY MOUTH EVERY DAY NEEDED FOR MIGRAINE MAY REPEAT DOSE AFTER 2 HOURS UP TO A MAX OF 1 active Not Available Not Available No t Available butalbital- acetaminoph en-caffeine 50 mg-325 mg-40 mg tablet TAKE 1 TABLET BY MOUTH EVERY 12 HOURS NEEDED FOR MIGRAINE. NOT TO EXCEED 2 TABLETS DAILY. NOT TO EXCEED 4000 MG ACETAMINO PHEN PER DAY active Not Available Not Available No t Available ondansetron 8 mg disintegrat ing tablet PLEASE SEE ATTACHED FOR DETAILED DIRECTION S active Not Available Not Available No t Available ciclopirox 8 % topical solution APPLY ONCE DAILY TO AFFECTED NAILS AND REMOVE AT THE END OF EACH WEEK WITH ACETONE OR RUBBING ALCOHOL. REPEAT WEEKLY active Not Available Not Available No t Available meloxicam 7.5 mg tablet TAKE 1 TABLET BY MOUTH EVERY DAY START DAY BEFORE SURGERY AND BRING ON DAY OF SURGERY 05/13 completed Not Available Not Available Not Available oxycodone-a cetaminophe n 5 mg-325 mg tablet PLEASE SEE ATTACHED FOR DETAILED DIRECTION S 05/13 completed Not Available Not Available Not Available terbinafine HCl 250 mg tablet TAKE 1 TABLET BY MOUTH EVERY DAY 04/06 completed Not Available Not Available Not Available lorazepam 0.5 mg tablet TAKE 1 TABLET BY MOUTH EVERY DAY NEEDED FOR ANXIETY active Not Available Not Available No t Available estradiol 1 mg tablet TAKE 1 TABLET BY MOUTH EVERY DAY 03/27 completed Not Available Not Available Not Available cephalexin 500 mg capsule TAKE 1 CAPSULE BY MOUTH EVERY 8 HOURS, 05/13 completed Not Available Not Available Not Available naproxen sodium 550 mg tablet 03/22 completed Not Available Not Available Not Available progesteron e micronized 200 mg capsule TAKE 1 CAPSULE BY MOUTH EVERY DAY AT BEDTIME 03/27 completed Not Available Not Available Not Available omeprazole 20 mg capsule,del ayed release TAKE 1 CAPSULE BY MOUTH EVERY DAY 03/27 completed Not Available Not Available Not Available ammonium lactate 12 % topical cream APPLY TOPICALLY TO DRY SKIN IN THE MORNING AND IN THE EVENING 05/13 completed Not Available Not Available Not Available gabapentin 100 mg capsule TAKE 1 CAPSULE BY MOUTH 3 TIMES A DAY 05/13 completed Not Available Not Available Not Available estradiol 0.5 mg tablet TAKE 1 TABLET BY MOUTH EVERY DAY active Not Available Not Available No t Available lorazepam 1 mg tablet TAKE 1 TABLET BY MOUTH TWICE DAILY NEEDED FOR ANXIETY active Not Available Not Available No t Available ibuprofen 600 mg tablet TAKE 1 TABLET BY MOUTH 3 TIMES A DAY WITH TYLENOL WITH FOOD OR MILK 04/06 completed Not Available Not Available Not Available naratriptan 1 mg tablet 11/23 completed Not Available Not Available Not Available progesteron e micronized 100 mg capsule TAKE 1 CAPSULE BY MOUTH EVERY DAY AT BEDTIME active Not Available Not Available No t Available oxycodone 5 mg tablet TAKE 1 TABLET BY MOUTH EVERY 6 HOURS NEEDED FOR MODERATE PAIN 04/06 completed Not Available Not Available Not Available ciclopirox 0.77 % topical cream APPLY AA TOPICALLY IN MORNING AND EVENING TO LEFT FOOT FOR 2 TO 4 WEEKS UNTIL CLEAR active Not Available Not Available No t Available cyclobenzap rine 5 mg tablet 03/27 completed rare Not Available Not Available Not Available omeprazole 20 mg tablet,david yed release TAKE 1 TABLET BY MOUTH EVERY DAY*NOT COVERED* 03/27 completed Not Available Not Available Not Available GaviLyte-G 236 gram-22.74 gram-6.74 gram-5.86 gram oral solution MIX AND DRINK BY MOUTH DIRECTED active Not Available Not Available No t Available butalbital- acetaminoph en-caffeine 50 mg-300 mg-40 mg capsule 11/21 completed Not Available Not Available Not Available Prepopik 10 mg-3.5 gram-12 gram oral powder packet 03/27 completed Not Available Not Available Not Available Vitals Date Recorded Body height Body mass index (BMI) Body weight Heart rate Systolic And Diastolic Provider Name and Address Organization Details Last Updated DateTime 05/13/2024 165.1 cm 29.7 kg/m2 80770.16 g 65 /min 126/72 mm[Hg] Lexus Varela in [facility], 05/13/2024 08:20:17 Date Recorded Body weight Body mass index (BMI) Body height Body temperature Heart rate Systolic And Diastolic Provider Name and Address Organization Details Last Updated DateTime 0 44069.3 7 g 32.3 kg/m2 162.56 cm 98.1 [degF] 71 /min 110/69 mm[Hg] Lexus Varela in [facility], 0 10:45:41 Date Recorded Body weight Body mass index (BMI) Body height Body temperature Heart rate Systolic And Diastolic Provider Name and Address Organization Details Last Updated DateTime 1 10117.3 1 g 30.4 kg/m2 163.83 cm 97.7 [degF] 65 /min 116/58 mm[Hg] Lexus Varela in [facility], 1 13:28:36 Date Recorded Body weight Body mass index (BMI) Body height Heart rate Systolic And Diastolic Provider Name and Address Organization Details Last Updated DateTime 03/27/2022 34697.41 g 26.4 kg/m2 163.83 cm 67 /min 121/62 mm[Hg] Nydia Varela in [facility], 03/27/2022 09:56:15 Date Recorded Body temperature Provider Name a nd Address Organization Details Last Updated DateTime 03/27/2022 97.3 [degF] Lexus Lopez in [facility], 03/27/2022 10:17:10 Date Recorded Body height Body mass index (BMI) Body weight Heart rate Systolic And Diastolic Provider Name and Address Organization Details Last Updated DateTime 04/06/2023 163.83 cm 27.2 kg/m2 41268.37 g 69 /min 126/68 mm[Hg] Nydia Erik Varela in [facility], 04/06/2023 10:38:13 Social History Question Answer Notes LastModified by Organizat ion Details LastModified Time Tobacco Smoking Status Never Smoker Lexus SAMARIA Alfred in [facility], 11/19/2017 14:08:41 Do You Have An Advance Directive? No Information n ot available 11/19/2017 How Many Years Have You Consumed Alcohol? 35 Rare Information not available 03/22/2021 What Is Your Level Of Caffeine Consumption? Moderate Information not available 03/22/2021 How Much Tobacco Do You Chew? None Information not available 11/19/2017 In The 14 Days Before Symptom Onset, Have You Had Close Contact With A Laboratory-confirm ed COVID-19 While That Case Was Ill? No Information n ot available 03/22/2021 In The 14 Days Before Symptom Onset, Have You Had Close Contact With A Person Who Is Under Investigation For COVID-19 While That Person Was Ill? No Information not available 11/24/2019 Have You Been To An Area Known To Be High Risk For COVID-19? No Information not available 11/24/2019 What Type Of Diet Are You Following? REGULAR Information n ot available 11/19/2017 Which Illicit Or Recreational Drugs Have You Used? No Information not available 11/19/2017 Do You Reside In Or Have You Traveled To An Area Where Ebola Virus Transmission Is Active? No Information not available 11/19/2017 Education 2 Year College Information not available 11/19/2017 What Is The Highest Grade Or Level Of School You Have Completed Or The Highest Degree You Have Received? [id number] Information not available 03/22/2021 How Many Days In The Past Year Have You Had A Heavy Drinking Consumption (4+ Female, 5+ Male)? 0 Information no t available 11/24/2019 Are There Any Guns Present In Your Home? Yes Information not available 11/19/2017 High Number Of Sexual Partners Yes Information not available 11/19/2017 To Which Gender Do You Self-identify? Female Information n ot available 11/19/2017 Marital Status Informatio n not available 11/19/2017 What Was The Date Of Your Most Recent Tobacco Screening? 05/13/2024 Information not available 05/13/2024 What Is Your Relationship Status? Information not available 03/22/2021 Seat Belts Used Routinely Yes Information not available 11/19/2017 Are You Sexually Active? Yes Information not available 11/19/2017 Smoke Alarm In Home Yes Information not available 11/19/2017 How Much Tobacco Do You Smoke? No Information not available 11/24/2019 General Stress Level Medium Information not available 11/19/2017 Do You Use Sunscreen Routinely? Yes Information not available 11/19/2017 Have You Recently (within The Last 12 Weeks, Or During A Current ) Traveled To Or Lived In A Zika-affected Area? No Information not available 11/19/2017 How Many Days In The Past Year Have You Consumed 4 Or More Drinks? 0 Information not available 03/22/2021 Sex: Female Functional Status Question Answer Note LastModified by Organizat ion Details LastModified Time Do you use any illicit or recreational drugs? No Information not available 03/22/2021 Do you or have you ever used any other forms of tobacco or nicotine? No Information not available 03/22/2021 What is your level of alcohol consumption? Occasional Information not available 11/19/2017 Do you or have you ever used smokeless tobacco? Never used smokeless tobacco Information not available 11/24/2019 Are you currently employed? No Information not available 03/22/2021 What is your occupation? retired Information not available 03/22/2021 Do you or have you ever used e-cigarettes or vape? Never used electronic cigarettes Information not available 11/24/2019 What is your exercise level? Moderate Information not available 03/22/2021 Mental Status Question Answer Note LastModified by Organization D etails LastModified Time Do you feel stressed (tense, restless, nervous, or anxious, or unable to sleep at night)? [id number] Information not available 03/22/2021 Family History Relationship Description Onset Age of this Age Resolved Age Notes LastModified by Organization Details LastModified Time Father Malignant neoplasm of lung melano ma and brain. [email or web address] Not available 11/19/2017 14:04:00 Sister Malignant neoplasm of cervix uteri could have been pre cancer ...??? leep [email or web address] Not available 11/19/2017 14:05:26 Sister Problem skin precan cer. on vulva [email or web address] Not available 11/19/2017 14:07:19 Mother Problem fibroi ds. on breast .? [email or web address] Not available 11/19/2017 14:05:57 Medical History Condition Response Anesthesia complications N High Blood Pressure N Candidate for MyRisk panel N Autoimmune Condition N Thyroid Problems N Kidney or Bladder Problems N GI Problems N Lung Disease N Depression N Defects or Inherited Disease N History of Ovarian Cancer N Anemia N History of Breast Cancer N REECE exposure N BRCA testing in past N Osteopenia N Psychiatric Illness N Anxiety Disorder N Diabetes N Arthritis N Headaches or Migraines Y Infertility N Asthma N History of Cancer Y Endometriosis N Hepatitis N Heart Disease N Hypertension N Osteoporosis N Gynecological History Statement/Question Response If Post Menopausal, Age at Menopause 50 Age at Menarche 14 Most Recent Mammogram 03/26/2024 Age at First Child 35 Obstetrics History GPAL:G 2 P 1 0 1 1 Type Value Full Term 1 Spontaneous 1 Living 1 Total 2 Immunizations Vaccine Type Date Status Note Provider Bowen hutchins and Address Organization Details Recorded Time Influenza, MDCK, quadrivalent, PF 03/27/2022 completed Nydia bravo [facility] - [facility], 03/27/2022 13:02:31 COVID-19, mRNA, LNP-S, PF, 30 mcg/0.3 mL dose 07/26/2020 completed SAMARIA Santana in [facility], 04/06/2023 10:38:26 COVID-19, mRNA, LNP-S, PF, 30 mcg/0.3 mL dose 08/12/2020 completed SAMARIA Santana in [facility], 04/06/2023 10:38:26 COVID-19, mRNA, LNP-S, PF, 30 mcg/0.3 mL dose 09/02/2020 completed SAMARIA Santana in [facility], 04/06/2023 10:38:26 Past Encounters Encounter ID Performer Location Encounter Start Date Encounter Closed Date Diagnosis/Indication Diagnosis SNOMED-CT Code Diagnosis ICD10 Code Diagnosis IMO Codes Diagnosis Note [id number] MD MARCIA Hatfield MD [address] [place] [address], [address] [place] [address] 11/19/2017 13:46:26 11/19/2017 15:38:27 Specialized medical examination 04476445 Z01.419 Screening for malignant neoplasm of rectum 282295486 Z12.12 Screening mammography 24 126406 Z12.31 [id number] MD MARCIA Hatfield MD [address] [place] [address],[address] [place] [address] 01/31/2018 10:53:54 01/31/2018 15:17:35 Menopausal syndrome 273600941 N95.1 [id number] MD MARCIA Hatfield MD [address] [facility],[address] [place] [address] 11/21/2018 08:31:45 11/21/2018 10:07:53 Specialized medical examination 63256743 Z01.419 Screening for malignant neoplasm of rectum 171266930 Z12.12 Screening mammography 24 220820 Z12.31 Menopausal syndrome 1237 06750 N95.1 [id number] MD MARCIA Hatfield MD [address] [place] [address],[address] [place] [address] 11/24/2019 10:41:51 11/24/2019 11:56:36 Specialized medical examination 33918524 Z01.419 Screening for malignant neoplasm of rectum 189124189 Z12.12 Screening mammography 24 468146 Z12.31 Menopausal syndrome 1237 55943 N95.1 [id number] MD MARCIA Hatfield MD [address] [place] [address], [address] [place] [phone] 03/22/2021 13:20:33 03/22/2021 14:54:51 Specialized medical examination 41950592 Z01.419 Screening for malignant neoplasm of rectum 348506615 Z12.12 Screening mammography 24 260123 Z12.31 Menopausal syndrome 1237 89169 N95.1 [id number] MD MARCIA Hatfield MD [address] [place] [address], [address] [place] [phone] 03/27/2022 09:47:10 03/27/2022 13:55:54 Specialized medical examination 62500749 Z01.419 Screening for malignant neoplasm of rectum 443831432 Z12.12 Screening mammography 24 374552 Z12.31 Menopausal syndrome 1237 33854 N95.1 Influenza vaccine needed 0796150035 106 Z23 [id number] MD MARCIA Hatfield MD [address] [place] [address], [address] [place] [address] 04/06/2023 10:34:34 04/06/2023 12:09:54 Specialized medical examination 33927637 Z01.419 Screening for malignant neoplasm of rectum 378942395 Z12.12 Screening mammography 24 442155 Z12.31 Menopausal syndrome 1237 20988 N95.1 [id number] MD MARCIA Hatfield MD [address] [place] [address], [address] [place] [phone] 05/13/2024 08:14:51 05/13/2024 14:56:06 Menopausal syndrome 363594957 N95.1 Specialize d medical examination 20804645 Z01.419 Screening for malignant neoplasm of rectum 521268129 Z12.12 Screening mammography 24 034816 Z12.31 Health Concerns Section Related Observation LastModified by Organization Detai ls LastModified Time None Recorded Concern Status LastModified by Organization Details LastModified Time None Recorded Advance Directives Directive N: Payers Insurance Date Sequence Insurance Name Policy Number Policy Ybarra Covered Member ID Ybarra Member ID Guarantor Name 05/09/2024 1 [facility] [employer] [id number] Vance Reeves [id number] Vance Reeves Notes Date Note Type Note Provider Name and Address Organization Details Recorded Time 11/24/2019 text/html She is here for annual exam, doing well on HRT and elects to continue. Note from 2018: She is here for annual exam, is doing well. She is not using the wild yam cream anymore, is taking HRT and doing well on that and elects to continue. Marcia Patterson MD [address], [place], [address], [email or web address] [facility], 11/24/2019 11:00:48 03/22/2021 text/html She is here for annual exam, is doing well on HRT but would like to try going down to half dose to see if she needs the full dose. She started in 02/2018. Marcia Patterson MD [address], [place], [address], [email or web address] [facility], 03/22/2021 13:54:11 03/27/2022 text/html She is here for annual exam, is doing well on half dose HRT, elects to continue. ___ note from 2020: She is here for annual exam, is doing well on HRT but would like to try going down to half dose to see if she needs the full dose. She started in 02/2018.Dropped down to 0.5 mg estradiol and 100 mg progesterone, call if symptoms recur. Marcia Patterson MD [address], [place], [address], [email or web address] [facility], 03/27/2022 12:29:52 04/06/2023 text/html She is here for annual, doing well. She tried to wean down off the half dose HRT but had profound vasomotor symptoms and restarted. She had her gallbladder out over Labor Day, I had an attack. note from 2021: She is here for annual exam, is doing well on half dose HRT, elects to continue. Also she requests a flu shot today. Marcia Patterson MD [address] [facility],[address], [place], [phone], [place] [facility], 04/06/2023 10:57:55 05/13/2024 text/html She is here for annual, doing well on her half dose HRT, elects to continue. Note from 2022: She is here for annual, doing well. She tried to wean down off the half dose HRT but had profound vasomotor symptoms and restarted.She had her gallbladder out over Labor Day, I had an attack. Marcia Patterson MD [address], [place], [address], [place] - [facility], 05/13/2024 08:39:24 OBGyn Episode No OBEpisode recorded.
== END 2025-04-22 15:49 | disposition home or self-care (01) ==
LOC: HO.ENCR 14:13
PROVIDERS: Visit Provider Internal Medicine Endocrinology, Diabetes & Metabolism
DX: E83.52 Hypercalcemia (principal)
CPT/HCPCS: 99204